=== PATIENT | female | born 1960 | race Caucasian/White ===

== ENCOUNTER 2018-09-18 11:45 | Day surgery (SDC) | payer BC, OTHER ==
[2018-09-18] MEDS ORDERED: PROPOFOL 10 MG/ML VIAL IV ONE (11:46)
[2018-09-18] MEDS ORDERED: LIDOCAINE 2% MDV (20MG/ML) 20ML VIAL IV ONE (11:46)
--- NOTE | 2018-09-19 10:30 | Operative Note ---
DATE OF SURGERY: September 18, 2018 OPERATION: COLONOSCOPY with random biopsy and photo. PREOPERATIVE DIAGNOSIS: Diarrhea. POSTOPERATIVE DIAGNOSES: 1. Sigmoid diverticulosis. 2. Rule out microscopic colitis. 3. Hemorrhoids. PROCEDURE: After informed consent was obtained from the patient, she was placed in the left lateral decubitus position in the endoscopy suite, sedated and monitored by the department of anesthesia. Digital rectal exam revealed non-thrombosed external hemorrhoids. No other palpable masses noted. A well-lubricated [id number] colonoscope was inserted into the rectum and advanced to the cecum. The cecum, cecal bulb, terminal ileum, ascending colon, transverse colon, and descending colon were free of inflammatory changes, mass, lesions, or polyps. There were [id number] sigmoid diverticular changes noted. The remainder of the sigmoid colon was unremarkable. Forward and J-turn views of the rectum and anorectum revealed hemorrhoids. The endoscope was straightened, the rectal ampulla deflated, and the endoscope was removed. RECOMMENDATIONS: The patient should resume her medications and diet. We will await the results of tissue histology to see if there is evidence of microscopic colitis. She should also undergo repeat exam in 10 years. As always, thank you for allowing me to participate in the healthcare of your patients. CC: DO AGUILA Batista
== END 2018-09-18 13:20 | disposition home or self-care (01) ==
LOC: HOP 11:45
PROVIDERS: ATTEND Internal Medicine Gastroenterology
DX: R19.7 Diarrhea, unspecified (principal); K57.30 Diverticulosis of large intestine without perforation or abscess without bleeding; K64.8 Other hemorrhoids